=== PATIENT | male | born 1970 | race Caucasian/White ===

== ENCOUNTER 2016-11-08 20:13 | Emergency (ER) | payer OTHER ==
[2016-11-08] MEDS ORDERED: IBUPROFEN (20:25)
== END 2016-11-08 22:35 | disposition home or self-care (01) ==
LOC: SED 20:13
DX: H57.11 Ocular pain, right eye (principal); R03.0 Elevated blood-pressure reading, without diagnosis of hypertension; F17.210 Nicotine dependence, cigarettes, uncomplicated
CPT/HCPCS: 99282

== ENCOUNTER → 2016-11-09 | Outpatient (CLI) | payer OTHER ==
[~2016-11-09] MED LIST: B/P MED; IBUPROFEN
--- NOTE | ~2016-11-09 | CR63 ---
[facility] A Service of [facility] & [facility] RADIOLOGY TEXT RESULTS PATIENT: MARY ELLEN LOPEZ LOCATION: [facility] : 72 UNIT #: [id number] AGE: [address]: Theron Dillard MD SEX: M ORDER DR: [id number] [facility] [address] [place], [place] [address] [id number] O MR#: [id number] Acc #: [id number] NAME: MARY ELLEN LOPEZ. : 1970 SEX: M STUDY DATE/TIME: 11/09/2016 12:23 UNIT: [facility] ROOM: STUDY DESCRIPTION: CR Chest 2 View Attending Physician: Theron Dillard M.D. Referring Physician: Theron Dillard M.D. Ordering Physician: Theron Dillard M.D. Primary Care Physician: Primary Care Physician No MEDICAL IMAGING REPORT This report is preliminary unless electronic signature is present EXAM Chest 11/09/2016 HISTORY 46-year-old male with acute recurrent uveitis right eye. Rule out sarcoid, hilar adenopathy. COMPARISON Chest none. FINDINGS 4 chest views are recorded and submitted. Cardiac size and configuration are normal. Hilar structures are normal with no evidence for hilar or mediastinal adenopathy. Bilateral lungs are expanded and clear. Costophrenic angles are preserved. IMPRESSION Negative chest. Specifically no evidence for pulmonary sarcoid. No hilar or mediastinal adenopathy Dictated by... Jozef De M.D. THIS IS AN ELECTRONICALLY VERIFIED REPORT Jozef De M.D. at 11/10/2016 8:11 AM [place]/vinay TD: 11/09/2016 16:48 JOB #: [id number] MEDICAL IMAGING REPORT Page 1 of 1 COPY
== END | disposition home or self-care (01) ==
LOC: CLAB 11:35
DX: H20.00 Unspecified acute and subacute iridocyclitis (principal)
CPT/HCPCS: 71020; 82164; 85652; 86618; 86812

== ENCOUNTER 2017-01-13 13:55 | Emergency (ER) | payer OTHER ==
[~2017-01-13] VITALS: Ht 180.3 cm; Wt 95.2 kg
--- NOTE | ~2017-01-13 | CR63 ---
[facility] A Service of [facility] & [facility] RADIOLOGY TEXT RESULTS PATIENT: MARY ELLEN LOPEZ LOCATION: SED : 72 UNIT #: [id number] AGE: [address]: Baljinder Jama MD SEX: M ORDER DR: [id number] [place] [id number] E MR#: [id number] Acc #: [id number] NAME: MARY ELLEN LOPEZ : 1970 SEX: M STUDY DATE/TIME: 01/13/2017 15:18 UNIT: SED ROOM: STUDY DESCRIPTION: CR Chest 2 View Attending Physician: Baljinder Jama M.D. Ordering Physician: Baljinder Jama M.D. Primary Care Physician: No Primary Care Physician MEDICAL IMAGING REPORT This report is preliminary unless electronic signature is present. EXAMINATION PA and lateral chest. DATE 01/13/2017 HISTORY Cough and congestion for 3 days. COMPARISON PA and lateral chest, 11/09/2016. FINDINGS No acute airspace disease is identified. No pleural effusion or pneumothorax is evident. Heart size is normal. No acute or suspicious osseous abnormalities. IMPRESSION 1. Normal 2 views of the chest. Dictated by... Suzanna Crisostomo M.D. THIS IS AN ELECTRONICALLY VERIFIED REPORT Suzanna Crisostomo M.D. at 01/14/2017 7:46 PM CAITY/matt TD: 01/14/2017 14:11 JOB #: [id number] MEDICAL IMAGING REPORT Page 1 of 1
[~2017-01-13 13:55] MED LIST changes: -B/P MED
[2017-01-13] MEDS ORDERED: B/P MED (14:03)
[2017-01-13 15:13] LABS: INFLUENZA A NEG (NEG); INFLUENZA B NEG (NEG)
== END 2017-01-13 15:55 | disposition home or self-care (01) ==
LOC: SED 13:55
PROVIDERS: Emergency Medicine
DX: J01.00 Acute maxillary sinusitis, unspecified (principal); J01.20 Acute ethmoidal sinusitis, unspecified; J20.9 Acute bronchitis, unspecified; I10 Essential (primary) hypertension; F17.210 Nicotine dependence, cigarettes, uncomplicated
CPT/HCPCS: 71020; 87651; 87804; 94640; 99283